=== PATIENT | female | born 1980 | race Asian ===

== ENCOUNTER → 2024-07-30 19:46 | Outpatient (REF) | payer OTHER, SELFPAY | LOC: WDC 19:46 | PROVIDERS: ATTENDING PHYSICIAN Family Medicine | DX: Z12.31 Encounter for screening mammogram for malignant neoplasm of breast (principal) | CPT/HCPCS: 77063; 77067 ==

== ENCOUNTER → 2025-07-31 19:17 | Outpatient (REF) | payer OTHER, SELFPAY | LOC: WDC 19:17 | PROVIDERS: ATTENDING PHYSICIAN Family Medicine | DX: Z12.31 Encounter for screening mammogram for malignant neoplasm of breast (principal) | CPT/HCPCS: 77063; 77067 ==

== ENCOUNTER 2025-10-12 21:59 | Emergency (ER) | payer OTHER, SELFPAY ==
[2025-10-12 22:01] VITALS: BP 162/90
--- NOTE | 2025-10-12 23:57 | ED.GENMED ---
History of Present Illness
General
Chief Complaint: Eye Problems
Source: patient and spouse
Exam Limitations: none
Time Seen by Provider: 10/12/25 22:55
Nursing documentation reviewed up to this point in time: agreed with
History of Present Illness
History of Present Illness:
44-year-old female presenting to the emergency department today with concerns of irritation to her left eye starting yesterday after something greasy and spicy splashed in her eye this morning. Ongoing irritation to the area and some blurred vision
Past History
Past History
ED Past Medical History: None
ED Past Surgical History: None
Social History
Tobacco: Non-smoker
Personal:
Living: with family
Review of Systems
Review of Systems
Allergies reviewed?: Yes
All Other Systems: ROS reviewed and negative except as documented in HPI and ROS
Phy Exam
Physical Exam
Physical Exam:
GENERAL: Alert , in no apparent distress
EYE: Normal extraocular movements, normal eye pressure of 15 and 14, no fluorescein uptake no signs of corneal abrasion no foreign body with lid everted, pupils equal and reactive
NECK: Supple, no significant adenopathy.
ENT: o/p clr, mmm.
CARDIAC: Regular rate and rhythm .
LUNGS: Clear breath sounds bilaterally, no acute respiratory distress, no wheezes/rales/rhonchi
ABDOMEN: Soft, without focal tenderness, no r/g, no cvat
NEUROLOGICAL: Alert and oriented, no focal neuro deficits
SKIN: Warm and dry, skin intact.
MUSCULOSKELETAL: No edema, well perfused.
PSYCH: Normal and appropriate interaction.
Normal extraocular movements
Course
Vital Signs
Initial and Last Documented VS:
Initial Vital Signs
Temp Pulse Resp BP Pulse Ox
98.0 F 93 20 162/90 99
10/12/25 22:01 10/12/25 22:01 10/12/25 22:01 10/12/25 22:01 10/12/25 22:01
Last Documented Vital Signs
Temp Pulse Resp BP Pulse Ox
98.0 F 93 20 162/90 99
10/12/25 22:01 10/12/25 22:01 10/12/25 22:01 10/12/25 22:01 10/12/25 22:01
MDM/Problems Addressed
MDM/Problems Addressed:
44-year-old female presenting to the emergency department today with concerns of irritation to her eye after getting some grease and spice into her eye this morning. Here her examination is reassuring normal extraocular movements normal pupil
reaction no fluorescein uptake normal eye pressure no foreign bodies found. Normal pH. No evidence of any emergent process advised for close outpatient follow-up otherwise return precautions given.
*Pulse Oximetry
SaO2: 99
Oxygen Mode of Delivery: Room air
Patient hypoxic: no (99)
*Critical Care Note
Total Time (30-74mins, 75-104mins- exclusive of procedures): Not Applicable
ED Attending Note
-
Portions of this chart may have been created with voice recognition software.� Occasional wrong word or��sound alike� substitutions may have occurred due to the inherent limitations of voice recognition software.
Discharge Plan
Departure
Patient Disposition: Home (Routine Discharge)
Date of Disposition: 10/12/25
Time of Disposition: 23:59
Patient with high blood pressure during this ER visit?: No
Condition: Good
Covid-19: Not Applicable
Discharge Problem:
Eye discomfort, Blurred vision
Instructions: How to Use Eye Drops
Prescriptions:
No Action
docusate sodium 100 MG capsule
100 mg PO BIDPRN PRN (Reason: Constipation) 0RF
ibuprofen 600 MG tablet
600 mg PO Q6HPRN PRN (Reason: pain) Qty: 30 0RF
acetaminophen-codeine 1 TABLET tablet
1 tab PO Q4HPRN PRN (Reason: pain) Qty: 15 0RF
meclizine 25 MG tablet
25 mg PO Q8HPRN PRN (Reason: dizziness) Qty: 15 0RF
ondansetron 4 MG tablet,disintegrating
4 mg PO TIDPRN PRN (Reason: nausea) Qty: 15 0RF
Referrals:
Gwen Figueroa MD [Family Provider, Family Practice]
Mary Jane Lao MD [Active, Ophthalmology] - Follow up in 2-3 days
Activity Restrictions/Additional Instructions:
You came to the emergency department today with concerns of irritation of your eye. Please follow closely with the eye doctor. Return for any worsening, new or concerning symptoms.
Interventions
Interventions:
*General Assessment Last Done: 10/12/25 22:01
Discharge Date and Time
Print Language: FRENCH
[2025-10-13] MEDS: ERYTHROMYCIN 0.5% OPHTHALMIC OINTMENT 1 APPLIC OPHTH (00:34)
[2025-10-13 00:44] VITALS: BP 140/88
== END 2025-10-13 00:45 | disposition home or self-care (01) ==
LOC: EMR 21:59
PROVIDERS: EMERGENCY PHYSICIAN Emergency Medicine; FAMILY PHYSICIAN Family Medicine
DX: H57.12 Ocular pain, left eye (principal); H53.8 Other visual disturbances
CPT/HCPCS: 99282